=== PATIENT | male | born 1975 | race Two or more races ===

== ENCOUNTER 2019-09-26 01:48 | Emergency (ER) | payer MEDICAID ==
[~2019-09-26] VITALS: Ht 170.2 cm; Wt 87.1 kg
--- NOTE | 2019-09-26 02:56 | NUR ---
Patient discharged to home in stable condition. Written and verbal after care instructions given. Patient verbalizes understanding of instruction and RX. Pt ambulated with steady gait. vss.
[2019-09-26 02:58] VITALS: BP 131/73
== END 2019-09-26 02:58 | disposition home or self-care (01) ==
LOC: ER 01:53
DX: R07.89 Other chest pain (principal)
CPT/HCPCS: 36415; 71045-TC; 84484-TC